=== PATIENT | female | born 1985 | race Two or more races ===

== ENCOUNTER 2016-11-25 22:37 | Observation (INO) | payer OTHER ==
[~2016-11-25 22:37] MED LIST: FEOSOL1 TAB; METHERGINE0.2 MG; PRENATAL1 TAB
[2016-11-25 23:59] LABS: URINE BILIRUBIN NEGATIVE (NEG); URINE BLOOD NEGATIVE (NEG); URINE GLUCOSE (UA) LARGE (NEG); URINE KETONE NEGATIVE (NEG); URINE LEUKOCYTE ESTERASE POSITIVE (NEG); URINE NITRITE NEGATIVE (NEG); URINE PROTEIN NEGATIVE (NEG)
[2016-11-26 00:01] LABS: URINE APPEARANCE CLOUDY; URINE COLOR YELLOW
[2016-11-26 00:19] LABS: URINE BACTERIA 3+; URINE EPITHELIAL CELLS 15-20 /[HPF] (0-10)
[2016-11-26 00:20] LABS: URINE RBC 0 /[HPF] (0-5)
[2016-12-30] MEDS ORDERED: VITAMIN D31000 UNI3 PO (08:35)
[2017-01-02] MEDS ORDERED: NORCO 5-325 TA1 EACH PO (00:52)
[2017-01-02] MEDS ORDERED: IBUPROFEN800 M1 PO (00:53)
[2017-01-02] MEDS ORDERED: COLACE100 M1 PO (00:53)
[2017-01-02] MEDS ORDERED: IBUPROFEN600 M1 PO (09:56)
[2017-01-02] MEDS ORDERED: TRIPLE NIPPLE TOP (09:58)
== END 2016-11-26 00:25 ==
LOC: LDR 22:37
PROVIDERS: ADMIT Obstetrics & Gynecology
DX: O26.853 Spotting complicating pregnancy, third trimester (principal); O99.89 Other specified diseases and conditions complicating pregnancy, childbirth and the puerperium; E55.9 Vitamin D deficiency, unspecified; Z3A.34 34 weeks gestation of pregnancy; Z98.890 Other specified postprocedural states